=== PATIENT | male | born 1965 | race Caucasian/White ===

== ENCOUNTER 2017-07-23 14:13 | Emergency (ER) | payer OTHER ==
[~2017-07-23] VITALS: Ht 175.3 cm; Wt 81.0 kg
[~2017-07-23 14:13] MED LIST: ADV25050 IH; LEVE100018 PO; MONT10TA24 PO; PHEN100C PO; PREG150C PO
[2017-07-23 14:21] VITALS: Ht 175.3 cm; Wt 81.0 kg
--- NOTE | 2017-07-23 15:31 | ERD ---
ER Documentation Chief Complaint Chief Complaint HEAD LAC S/P FALL WHILE WAITING FOR BUS , NO K/O , C/O DIZZINESS HPI The patient is a 52-year-old male, presenting to the ER because of scalp laceration after mechanical fall at the bus stop. He denies syncope, near syncope, neck pain, chest pain, dyspnea, abdominal pain, vomiting, dysuria, diarrhea. He does not smoke nor drink. He had Tdap a month ago Past medical history: Seizure disorder, asthma next Past surgical history: None ROS All systems reviewed and are negative except as per history of present illness. Medications Home Meds Reported Medications Salmeterol Xinaf/Fluticasone* (Advair 250/50 Diskus*) 1 Inh Inha, 1 INH IH BID 05/06/13 Montelukast Sodium* (Montelukast Sodium*) 10 Mg Tablet, 10 MG PO DAILY 05/06/13 Pregabalin* (Lyrica*) 150 Mg Capsule, 150 MG PO BID 05/06/13 Levetiracetam* (Keppra*) 1,000 Mg Tablet, 1500 MG PO TID 05/06/13 Phenytoin* Sodium Extended (Dilantin*) 100 Mg Capsule, 130 MG PO HS 05/06/13 Allergies Allergies: Coded Allergies: No Known Allergy (Unverified , 05/06/13) PMhx/Soc History of Surgery: No Anesthesia Reaction: No Hx Neurological Disorder: Yes (SEIZURE ) Hx Respiratory Disorders: Yes (ASTHMA ) Hx Cardiac Disorders: No Hx Psychiatric Problems: No Hx Miscellaneous Medical Probl: No Hx Alcohol Use: No Hx Substance Use: No Hx Tobacco Use: No Smoking Status: Never smoker Physical Exam Vitals Vital Signs Date Time Temp Pulse Resp B/P Pulse Ox O2 Delivery O2 Flow Rate FiO2 07/23/17 17:45 78 18 145/75 98 Room Air 07/23/17 14:21 98.1 88 18 112/69 98 Physical Exam Const: No acute distress. Head: Occipital hematoma, 6 cm laceration Eyes: Normal Conjunctiva. ENT: Normal External Ears, Nose and Mouth. Neck: Full range of motion. No meningismus. Resp: Clear to auscultation bilaterally. Cardio: Regular rate and rhythm. Abd: Soft, non distended, normal bowel sounds, non tender. Skin: No petechiae or rashes. Back: No midline or flank tenderness. Ext: No cyanosis, or edema. Neur: Awake and alert. No focal deficit Psych: Normal Mood and Affect. Result Diagram: 07/23/17 1549 07/23/17 1549 Results 24 hrs Laboratory Tests Test 07/23/17 15:49 White Blood Count 9.010^3/ul Red Blood Count 4.9410^6/ul Hemoglobin 15.2g/dl Hematocrit 42.0% Mean Corpuscular Volume 85.0fl Mean Corpuscular Hemoglobin 30.8pg Mean Corpuscular Hemoglobin Concent 36.2g/dl Red Cell Distribution Width 12.4% Platelet Count 80218^3/UL Mean Platelet Volume 10.0fl Neutrophils % 65.0% Lymphocytes % 26.6% Monocytes % 5.7% Eosinophils % 1.9% Basophils % 0.7% Nucleated Red Blood Cells % 0.0/100WBC Neutrophils # 5.810^3/ul Lymphocytes # 2.410^3/ul Monocytes # 0.510^3/ul Eosinophils # 0.210^3/ul Basophils # 0.110^3/ul Nucleated Red Blood Cells # 0.010^3/ul Prothrombin Time 12.8Sec Prothrombin Time Ratio 1.0 INR International Normalized Ratio 0.96 Activated Partial Thromboplast Time 26.3Sec Sodium Level 143mmol/L Potassium Level 3.9mmol/L Chloride Level 103mmol/L Carbon Dioxide Level 30mmol/L Anion Gap 14 Blood Urea Nitrogen 13mg/dl Creatinine 0.79mg/dl Glucose Level 95mg/dl Calcium Level 9.0mg/dl Phenytoin (Dilantin) Level 8.1ug/ml Current Medications Medications (Trade) Dose Ordered Sig/Rusty Route PRN Reason Start Time Stop Time Status Last Admin Dose Admin Lidocaine/ Epinephrine (Xylocaine 1%/ Epi (Pf)) 30 ml ONCE STAT INJ 07/23/17 16:49 07/23/17 16:50 DC Phenytoin (Dilantin) 300 mg ONCE ONCE PO 07/23/17 17:30 07/23/17 17:31 DC 07/23/17 17:20 Procedures/[place] [id number] Radiology Main Line: [phone] DIAGNOSTIC IMAGING REPORT Patient: MONIQUE BLACKWELL : 1965 Age: 52 Sex: M MR #: [id number] DOS: 07/23/17 1547 Ordering MD: PARADISE RAMÍREZ MD Location: E/R Room/Bed: PROCEDURE: CT Brain without contrast. CLINICAL INDICATION: Headache. Trauma to the right here and occipital region. TECHNIQUE: A multiplanar CT of the brain was performed on a CT scanner utilizing axial imaging from the skull base through the vertex without IV contrast. The CTDIvol is 44.81 mGy and the DLP is 720.23 mGycm. One or more of the following dose reduction techniques were utilized: Automated exposure control, adjustment of the mA and/or kV according to patient size, use of iterative reconstruction technique. DICOM images are available. COMPARISON: None FINDINGS: No evidence of intracranial hemorrhage or abnormal extra-axial fluid collection. Large right parietal scalp hematoma and laceration without underlying calvarial fracture or parenchymal contusion. No contra coup injury. Punctate calcification in the left frontal lobe suggestive of sequelae of chronic neurocysticercosis. The brain parenchyma is normal attenuation morphology with preservation of champagne white differentiation and age appropriate size of the ventricles and subarachnoid spaces. The basal cisterns, posterior fossa contents, brainstem, craniocervical junction , orbits, pituitary axis, paranasal sinuses, mastoid air cells, and calvarium are unremarkable. IMPRESSION: 1. No intracranial hemorrhage, edema, mass effect or shift. 2. Large right parietal scalp hematoma laceration without underlying calvarial fracture. 3. Punctate left frontal lobe punctate calcification suggestive of sequelae of chronic neurocysticercosis. RPTAT:AAJJ Physician [place] Date Time Electronically viewed and signed by Physician [place] on 07/23/2017 16:49 GONZALO/ CC: PARADISE RAMÍREZ MD MEDICAL MAKING DECISION: The patient is a 52-year-old male, presenting with acute scalp laceration, sub-therapeutic Dilantin level. He was treated with Dilantin 3 mg p.o. for subtherapeutic Dilantin level The differential diagnoses considered include but are not limited to subarachnoid hemorrhage, occult trauma, CVA, meningitis, encephalitis, hypertension, tension, migraine, cluster, narcotic withdrawal, cervical spine disease. Laceration Repair by me: Anesthesia: 1% lidocaine locally Location: Occiput Tendon/Joint/Nerves: No injury Foreign body: None detected after copious irrigation and exploration Technique: Simple Interrupted Sutures Complexity: No subcutaneous sutures/mucosal repair/ edge excision Post Closure Length: 6cm Patient's bleeding was easily controlled in the department and there is no indication of anemia. No evidence of compartment syndrome, neurologic injury, vascular injury, open joint, tendon laceration, or foreign body. Patient is appropriate for outpatient follow up. 48 hour wound check. Scar minimization instructions given. Departure Diagnosis: Primary Impression: Occipital scalp laceration Additional Impression: Subtherapeutic serum dilantin level Condition: Good Comments He was advised to return in 2 days for wound check and 10 day for suture removal X I discussed the findings with the patient. I advised the patient to follow-up with the primary physician in about 1-2 days, sooner if needed and return if any concern. Disclaimer: Inadvertent spelling and grammatical errors are likely due to EHR/ dictation software use and do not reflect on the overall quality of patient care. Also, please note that the electronic time recorded on this note does not necessarily reflect the actual time of the patient encounter. PARADISE RAMÍREZ MD Jul 23, 2017 15:31
[2017-07-23 16:07] LABS: BASOPHIL # 0.1 10^3/ul (0.0-0.1); BASOPHILS % 0.7 % (0.0-2.0); EOSINOPHILS # 0.2 10^3/ul (0.0-0.5); EOSINOPHILS % 1.9 % (0.0-7.0); HEMOGLOBIN 15.2 g/dl (14.0-18.0); LYMPHOCYTES # 2.4 10^3/ul (0.8-2.9); LYMPHOCYTES % 26.6 % (15.0-51.0); MEAN CORPUSCULAR HEMOGLOBIN 30.8 pg (29.0-33.0); MEAN CORPUSCULAR HGB CONC 36.2 g/dl (32.0-37.0); MONOCYTE # 0.5 10^3/ul (0.3-0.9); MONOCYTES % 5.7 % (0.0-11.0); NEUTROPHIL # 5.8 10^3/ul (1.6-7.5); PLATELET COUNT 277 10^3/UL (140-415); RED BLOOD COUNT 4.94 10^6/ul (4.70-6.10); RED CELL DISTRIBUTION WIDTH 12.4 % (11.5-14.5)
[2017-07-23 16:27] LABS: CREATININE 0.79 mg/dl (0.61-1.24); POTASSIUM 3.9 mmol/L (3.5-5.1)
[2017-07-23 16:28] LABS: INR 0.96; PARTIAL THROMBOPLASTIN TIME 26.3 Sec (25.0-35.0); PROTIME 12.8 Sec (12.2-14.2)
[2017-07-23] MEDS ORDERED: LIDOCAINE 1%/EPI 30 ML INJ INJ STA (16:49)
--- NOTE | 2017-07-23 16:49 | RADRPT ---
PROCEDURE: CT Brain without contrast. CLINICAL INDICATION: Headache. Trauma to the right here and occipital region. TECHNIQUE: A multiplanar CT of the brain was performed on a CT scanner utilizing axial imaging fro m the skull base through the vertex without IV contrast. The CTDIvol is 44.81 mGy and the DLP is 72 0.23 mGycm. One or more of the following dose reduction techniques were utilized: Automated exposu re control, adjustment of the mA and/or kV according to patient size, use of iterative reconstructio n technique. DICOM images are available. COMPARISON: None FINDINGS: No evidence of intracranial hemorrhage or abnormal extra-axial fluid collection. Large right parieta l scalp hematoma and laceration without underlying calvarial fracture or parenchymal contusion. No c ontra coup injury. Punctate calcification in the left frontal lobe suggestive of sequelae of chronic neurocysticercosis. The brain parenchyma is normal attenuation morphology with preservation of champagne white differentiatio n and age appropriate size of the ventricles and subarachnoid spaces. The basal cisterns, posterior fossa contents, brainstem, craniocervical junction, orbits, pituitary axis, paranasal sinuses, mastoid air cells, and calvarium are unremarkable. IMPRESSION: 1. No intracranial hemorrhage, edema, mass effect or shift. 2. Large right parietal scalp hematoma laceration without underlying calvarial fracture. 3. Punctate left frontal lobe punctate calcification suggestive of sequelae of chronic neurocystice rcosis. RPTAT:AAJJ Physician [place] Date Time Electronically viewed and signed by Physician [place] on 07/23/2017 16:49 GONZALO/
[2017-07-23] MEDS ORDERED: PHENYTOIN 100 MG CAP PO ONE (17:30)
[2017-07-23 17:45] VITALS: BP 145/75; PULSE 78; RESP 18
== END 2017-07-23 18:15 | disposition home or self-care (01) ==
LOC: E/R 14:13
DX: S01.01XA Laceration without foreign body of scalp, initial encounter (principal); J45.909 Unspecified asthma, uncomplicated; W18.39XA Other fall on same level, initial encounter; Y92.521 Bus station as the place of occurrence of the external cause; Z51.81 Encounter for therapeutic drug level monitoring
CPT/HCPCS: 12002; 70450; 80048; 80185; 85025; 85610; 85730; Z7502; Z7610